=== PATIENT | male | born 1965 | race Caucasian/White ===

== ENCOUNTER 2017-01-29 17:30 | Emergency (ER) | payer BC ==
[~2017-01-29] VITALS: Ht 177.8 cm; Wt 112.3 kg
[2017-01-29 18:36] LABS: HEMATOCRIT 45.5 % (38.0-50.0); MCHC 33.4 G/DL (30.0-36.0); MCV 89.7 FL (86-99); MEAN PLAT.VOLUME 8.8 uM^3 (9.0-12.4); PLATELET COUNT 305 K/uL (156-360); RBC DIS.WIDTH-CV 12.3 % (11.8-14.6); RBC DIS.WIDTH-SD 40.5 % (39-53); RED BLOOD COUNT 5.07 M/uL (4.00-5.50); WHITE BLOOD COUNT 18.1 K/uL (4.1-10.2)
[2017-01-29 18:52] LABS: CHLORIDE 102 mEq/L (99-109); POTASSIUM 4.3 mEq/L (3.7-5.4); SODIUM 137 mEq/L (136-147)
[2017-01-29 18:53] LABS: GLUCOSE 135 mg/dL (70-99)
[2017-01-29 18:55] LABS: ANION GAP 11 MEQ/L (2-14)
[2017-01-29 18:57] LABS: GFR ESTIMATE (CALCULATED) > 59 mL/min/; TROP-I INTERPRETATION NEGATIVE; TROPONIN-I < 0.01 ng/mL (0.0-0.30)
[2017-01-29 18:58] LABS: UREA NITROGEN (BUN) 14 mg/dL (9-23)
[2017-01-29 21:56] VITALS: BP 141/94
== END 2017-01-29 21:59 | disposition home or self-care (01) ==
LOC: EME 17:30
PROVIDERS: Emergency Medicine
DX: R07.9 Chest pain, unspecified (principal); E78.5 Hyperlipidemia, unspecified; I10 Essential (primary) hypertension
CPT/HCPCS: 71020; 71275; 80048; 83880; 84484; 85027; 93005; 93971; 99281; 99285; J1100; J1200; J2270